=== PATIENT | female | born 1975 | race Two or more races ===

== ENCOUNTER 2016-12-04 11:42 | Inpatient (IN) | payer OTHER ==
[~2016-12-04] VITALS: Ht 162.6 cm; Wt 95.7 kg
[2016-12-04] VITALS (8 sets, daily range): BP systolic 127–169; BP diastolic 64–88
[~2016-12-04 11:42] MED LIST: ceFAZolin sod 2 GM in D5W 110 ML IVP ONE
[2016-12-04] MEDS ORDERED: METOPROLOL SUCC50 MG ORAL (12:31)
[2016-12-04] MEDS ORDERED: HYDROCHLOROTHIA25 MG ORAL (12:32)
[2016-12-04] MEDS ORDERED: LISINOPRIL40 MG ORAL (12:32)
[2016-12-04] MEDS ORDERED: VIT D PO (12:33)
[2016-12-04] MEDS ORDERED: Gelfoam Absorbable 1gm powder pkt TOPIC ONE (12:59)
[2016-12-04] MEDS ORDERED: Bupivacaine w/Epi 0.5% 30ml Vial INJ ONE (12:59)
[2016-12-04] MEDS ORDERED: Bacitracin 50000 Units Vial ONE (12:59)
[2016-12-04] MEDS ORDERED: Thrombin 5000 units TOPIC ONE ×2 (12:59→14:11)
[2016-12-04] MEDS ORDERED: Thrombin 5000 units spray kit TOPIC ONE (12:59)
[2016-12-04] MEDS ORDERED: Zemuron 50mg/5ml Inj IV ONE (14:20)
[2016-12-04] MEDS ORDERED: NS Irrig 1000ml ONE (14:20)
[2016-12-04] MEDS ORDERED: Sterile Water Irrig 1000ml IRRIG ONE (14:20)
[2016-12-04] MEDS ORDERED: Propofol 10mg/ml 100ml btl IV ONE (14:20)
[2016-12-04] MEDS ORDERED: fentaNYL 100 mcg/2 mL IV ONE (14:20)
[2016-12-04] MEDS ORDERED: Midazolam 2mg/2ml Inj ONE (14:20)
[2016-12-04] MEDS ORDERED: Esmolol 100mg/10ml Inj ONE (14:20)
[2016-12-04] MEDS ORDERED: LR 1000ml ONE (14:20)
[2016-12-04] MEDS ORDERED: NS Irrig 1000ml IRRIG ONE (14:30)
--- NOTE | 2016-12-04 14:57 | Pre-Procedure Note/Attestation ---
Pre-Procedure Note/Attestation Complete Prior to Procedure Procedure Narrative: acdf c456 Indications for Procedure Pre-Operative Diagnosis: C456 HNP Attestation I attest that I discussed the nature of the procedure; its benefits; risks and complications; and alternatives (and the risks and benefits of such alternatives ), prior to the procedure, with the patient (or the patient's legal development representative). I attest that, if there was a reasonable possibility of needing a blood transfusion, the patient (or the patient's legal development representative) was given the [facility] standardized written summary, pursuant to the [place] [employer] Blood Safety Act ([place] Health and Safety Code # 1645, as amended). I attest that I re-evaluated the patient just prior to the surgery and that there has been no change in the patient's H&P, except as documented below: SHAKILA DALY Dec 04, 2016 14:57
--- NOTE | 2016-12-04 14:58 | Brief Operative Note ---
Immediate Post Operative Note Operative Note Pre-op Diagnosis: C456 HNP Procedure: ACDF c456, c5 partial corpectomy Post-op Diagnosis: same as pre-op Findings: consistent w/pre-op dx studies Surgeon: rebekah Cut Off Saw Operator Pipe Blanks: derek Segura Anesthesiologist: medhat Anesthesia: general Specimen: none Complications: none Condition: stable Estimated Blood Loss: minimal Drains: hemovac Implant(s) used?: Yes - alphateck cage and plate 8 mm and 5 mm small footplate , 32 mm plate SHAKILA DALY Dec 04, 2016 14:58
[2016-12-04] MEDS ORDERED: LR 1000ml 1,000 ML IVLG SCH (15:50)
[2016-12-04] MEDS ORDERED: LORazepam Inj 2mg/ml 1ml IV PRN (16:00)
[2016-12-04] MEDS ORDERED: Meperidine 25mg/ml Inj IV PRN (16:00)
[2016-12-04] MEDS ORDERED: Labetalol 5mg/ml 20ml vial IV PRN (16:00)
[2016-12-04] MEDS ORDERED: DiphenhydrAMINE 50mg/ml Inj IVP PRN (16:00)
[2016-12-04] MEDS ORDERED: Hydromorphone 0.5mg/0.5ml inj IVP PRN (16:00)
--- NOTE | 2016-12-04 16:02 | Anethesia Preoperative Eval ---
Anesthesia Pre-op PMH/ROS General Date of Evaluation: Dec 04, 2016 Time of Evaluation: 14:16 Anesthesiologist: Liliya ASA Score: ASA 3 Mallampati Score Class I : Soft palate, uvula, fauces, pillars visible Class II: Soft palate, uvula, fauces visible Class III: Soft palate, base of uvula visible Class IV: Only hard plate visible Mallampati Classification: Class III Surgeon: Billy Diagnosis: Herniated cervical disc Surgical Procedure: ACDF C4-5, 5-6 Family History: no anesthesia problems Allergies: Coded Allergies: PROCHLORPERAZINE (Verified Allergy, Intermediate, 12/03/16) JITTERY Medications: see eMAR Past Medical History Cardiovascular: Reports: HTN, Denies: CAD, [place], arrhythmia, other, valve dz Pulmonary: Denies: COPD, [place], asthma, other Gastrointestinal/Genitourinary: Denies: CRI, ESRD, GERD, other Neurologic/Psychiatric: Denies: CVA, TIA, dementia, depression/anxiety, other Endocrine: Denies: DM, hypothyroidism, other, steroids HEENT: Denies: CHITIMACHA (L), CHITIMACHA (R), cataract (L), cataract (R), glaucoma, other Hematology/Immune: Denies: DVT, anemia, bleeding disorder, other Musculoskeletal/Integumentary: Denies: DDD, DJD, OA, RA, edema, other Other: obesity PMH Narrative: HTN, obesity PSxH Narrative: AP, cholecystectomy, partial colectomy, abdominoplasty Anesthesia Pre-op Phys. Exam Physician Exam Last Vital Signs Date Time Temp Pulse Resp B/P Pulse Ox O2 Delivery O2 Flow Rate FiO2 12/04/16 12:17 98.0 71 18 127/64 96 Room Air Constitutional: NAD Neurologic: CN 2-12 intact Cardiovascular: RRR, no M/R/G Respiratory: CTA Gastrointestinal: S/NT/ND Airway Exam Mallampati Score: Class III MO: full ROM: full Teeth: intact Anesthesia Pre-op A/P Labs WNL Urine Test Test 12/04/16 11:55 Urine HCG, Qualitative Negative Studies Pre-op Studies: EKG - NSR Risk Assessment & Plan Assessment: Hypertensive female for ACDF Plan: GETA Status Change Before Surgery: No Pre-Antibiotics Drug: Ancef Given Within 1 Hr of Incision: Yes Time Given: 14:30 JEN KILGORE M.D. Dec 04, 2016 16:02
--- NOTE | 2016-12-04 16:03 | Immediate Post-Op Evaluation ---
Immediate Post-Op Evalulation Immediate Post-Op Evalulation Procedure: ACDF C4-5, 5-6 Date of Evaluation: Dec 04, 2016 Time of Evaluation: 18:47 IV Fluids: 1600 Estimated Blood Loss: 200 Urinary Output: 400 Blood Pressure Systolic: 147 Blood Pressure Diastolic: 70 Pulse Rate: 103 Respiratory Rate: 22 O2 Sat by Pulse Oximetry: 97 Temperature (Fahrenheit): 98.0 Pain Score (1-10): 0 Nausea: No Vomiting: No Complications No complication Patient Status: reacts, patent, extubated, none Hydration Status: adequate Drug: Ancef Given Within 1 Hr of Incision: Yes Time Given: 14:30 JEN KILGORE M.D. Dec 04, 2016 16:03
[2016-12-04] MEDS ORDERED: Naloxone 0.4mg/ml Inj IVP PRN ×2 (17:15→18:30)
[2016-12-04] MEDS ORDERED: Propofol 10mg/ml 20ml IV ONE (17:43)
[2016-12-04] MEDS ORDERED: HYDROmorphone 1mg/ml Carpuject SUBQ PRN (18:30)
[2016-12-04] MEDS ORDERED: HYDROmorphone 1mg/ml Carpuject IVP PRN (18:30)
[2016-12-04] MEDS ORDERED: Milk of Magnesia 30ml Ud ORAL PRN ×2 (18:30→20:01)
[2016-12-04] MEDS ORDERED: Norco 5mg/325mg tab ORAL PRN ×2 (18:30→20:01)
[2016-12-04] MEDS ORDERED: Norco 7.5mg/325mg tab ORAL PRN ×2 (18:30)
[2016-12-04] MEDS ORDERED: LR 1000ml 1,000 ML IV SCH (20:00)
[2016-12-04] MEDS ORDERED: Tylenol #3 tab (300mg/30mg) ORAL PRN (20:01)
[2016-12-04] MEDS ORDERED: Morphine Sulfate 4mg/ml Inj IM PRN (20:01)
[2016-12-04] MEDS ORDERED: Transderm Scop 1.5mg TDERMAL PRN (20:01)
[2016-12-04] MEDS ORDERED: Norco 10mg/325mg tab ORAL PRN (20:01)
[2016-12-04] MEDS ORDERED: LORazepam 0.5mg tab ORAL PRN (20:01)
[2016-12-04] MEDS ORDERED: Zolpidem 5mg tab ORAL PRN (21:00)
[2016-12-04] MEDS: ceFAZolin sod 1 GM in D5W 55 ML IV SCH (22:00)
[2016-12-05] VITALS: BP 115/77
[2016-12-05] MEDS: Morphine Sulfate 4mg/ml Inj IM PRN ×5 (00:20→16:45)
[2016-12-05] MEDS: Cyclobenzaprine 10mg Tab ORAL PRN ×2 (02:21→11:14)
--- NOTE | 2016-12-05 02:39 | Operative Note - Dictated ---
DATE OF OPERATION: 12/04/2016 SURGEON: Richard Cervantes M.D. IV THERAPY NURSE: ALE Kaye. ANESTHESIOLOGIST: Timi Lovell M.D. ANESTHESIA TYPE: General endotracheal anesthesia. PREOPERATIVE DIAGNOSES: 1. Disk extrusions C4-C5 and herniation with discopathy C5-C6. 2. Radiculopathy right side primarily. POSTOPERATIVE DIAGNOSES: 1. Disk extrusions C4-C5 and herniation with discopathy C5-C6. 2. Radiculopathy right side primarily. PROCEDURE: 1. Wide and radical discectomy, C4-C5 and C5-C6. 2. Partial corpectomy superior portion of C5. 3. Interbody fusion, C4-C5 and C5-C6 using structural PEEK cage with allograft (Bacterin bone as well as local autograft bone). 4. Anterior instrumentation using Alphatec plate (32 mm with fixed angle screws. 5. Use of fluoroscopy. 6. Use of operative microscope. 7. Neurodiagnostic monitoring. ESTIMATED BLOOD LOSS: 200 mL. COMPLICATIONS: None. FINDINGS: Large calcified disk extrusion posteriorly at C4-C5, requiring a partial corpectomy of the superior portion of C5. INDICATIONS: The patient is a very pleasant, 41-year-old, who sustained an injury resulting in significant neck pain and disc extrusion. Surgical intervention was recommended after conservative care had failed. She had fairly significant radiculopathic findings in the right upper extremity and therefore surgical intervention was recommended. RISK NOTE: The patient was explained in detail the risks and benefits of surgery to include, but not be limited to, those of bleeding, infection, damage to nerves, vessels, tendons, anesthetic risk, allergic reaction, aspiration, and possibly , possible risk of pseudoarthrosis, and need for additional surgery was discussed. The patient understood and wished to proceed. OPERATIVE PROCEDURE IN DETAIL: The patient was taken to the operative suite. After general endotracheal anesthesia was induced, Moore catheter was placed. Neck was prepped and draped in the usual sterile fashion after the neck bolster was applied as well as a chin strap. The C5 level was localized with a needle superimposed on the skin and fluoroscopically confirmed. The neck was prepped and draped in the usual sterile fashion. A transverse incision was made through the skin. The incision was carried down through to the area of the platysma. Platysma was split perpendicular to the fibers. The interval medial to sternocleidomastoid was bluntly dissected. The carotid pulse was palpated and dissection was obtained medial to this. The interval medial to the sternocleidomastoid along the prevertebral fascia was delineated. A self-retaining retractors were put in place. Needle was placed at C5-C6 and radiographically confirmed. The needle was removed. The operating microscope was brought into place. [place] posts were placed then at C5 and C6. The disk was incised under microscopic visualization, wide and radical diskectomy was performed at C5-C6 all the way down to the posterior longitudinal ligament. There was partial calcification along the left lateral recess. A right-sided partial uncovertebrectomy and decompression of the right neural foramen at C5-C6 was performed using standard technique by drilling out the posterior osteophyte as well as use of a curved curette as well as a [place] punch. Once satisfied with the decompression, copious irrigation was performed. Meticulous hemostasis was performed. The appropriate sized PEEK cage (small footplate by 5 mm was chosen after a trial was inserted and noted to be in good position under fluoroscopic guidance. At this juncture, the PEEK cage was centrally packed with a block of Bacterin bone, which had been soaking in the patient's blood to reconstitute and soften the bone. The bone was inserted into a central fenestration and the excess was cut off. The PEEK cage was then inserted into the disk space and under fluoroscopic guidance, it was noted to be in excellent position. Additional bone graft material was placed at the periphery, both on the right and on the left. [place] post was removed from C6. The retractors were repositioned and the post was then placed into C4. Bladder radical diskectomy was performed in a similar fashion all the way down to the posterior annulus. A small central disc fragment was identified and this was removed. At this point, dissection was further carried down and it was noted that the posterior edge of the disk had calcified centrally and towards the right side and then using a meticulous micro technique, the interval between the calcified disk and the dura was developed. The calcified disk was removed in a piecemeal fashion. Please note that the disk extrusion, which was calcified did extend below the vertebral body of C5 and therefore a partial corpectomy on the central right side was required in order to deliver the calcified disk. Once this was achieved, a partial corpectomy of the left side was also achieved so as to have a parallel endplates. At this point, the appropriate sized cage (8 mm in height) small footprint was centrally packed with bone graft. The cage was placed under fluoroscopic guidance and noted to be in good position. The defect on the left and on the right was then packed with additional local autograft and the additional Bacterin bone. The [place] posts were both removed. Hemostasis was achieved. Bone wax was applied. At this juncture a 32 mm plate was chosen. It was contoured into lordosis and applied. The central 2 screws were first applied under fluoroscopic guidance. Then the screws in the C4 and C6 were subsequently also applied under fluoroscopic guidance due to the extensive nature of corpectomy and in order to hopefully avoid significant subsidence, a fixed angled screws were applied 14 mm bilaterally into C4, 14 mm bilaterally into C5, and 14 mm on the right, and 12 mm screw on the left. The patient overall tolerated the procedure well. Meticulous hemostasis was achieved. Due to the extensive nature of the bony work, medium-size Hemovac drain was placed. The platysma was repaired using 3-0 Vicryl. Subcutaneous closure using 4-0 Vicryl. Dermabond was applied and a sterile dressing was applied. The patient overall tolerated the procedure well. All sponge, needle counts were correct. The patient was awakened, extubated, and transferred to recovery room in stable condition. Richard Cervantes M.D. DR: WAQAR JOB#: [id number] CC:
[2016-12-05 04:00] VITALS: BP 131/71
[2016-12-05] MEDS: ceFAZolin sod 1 GM in D5W 55 ML IV SCH ×2 (05:53→13:17)
--- NOTE | 2016-12-05 06:39 | Consultation ---
DATE OF CONSULTATION: 12/04/2016 CONSULTING PHYSICIAN: Clifton Ochoa M.D. REFERRING PHYSICIAN: Richard Cervantes M.D. REASON FOR CONSULTATION: Acute pain consult. HISTORY OF PRESENT ILLNESS: Dear Dr. Richard Cervantes, Thank you kindly for consulting me to evaluate and render an opinion as to how to proceed in the management of the patient's acute postoperative cervical spine pain after cervical spine fusion surgery with instrumentation. I did see that the patient is a pleasant 41-year-old, obese woman who injured her neck in an accident. She required cervical spine fusion surgery with instrumentation today. She complains significant postoperative discomfort and consulted me for acute pain consultation. I saw the patient at bedside and performed a detailed History and Physical examination. I reviewed the medical record with the nursing team and pharmacy staff including pharmacist Junior . I discussed the case with yourself, Dr. Cervantes and devised the following analgesic plan. PAST MEDICAL HISTORY: 1. Acute postoperative cervical spine pain, status post cervical spine fusion surgery with instrumentation by Dr. Richard Cervantes in November 2016. 2. Personal injury. 3. Obesity. 4. Hypertension. ALLERGIES: Compazine. MEDICATIONS: Medications at home, hydrochlorothiazide, lisinopril, metoprolol, and antibiotics. SOCIAL HISTORY: The patient lives at home with her adult children and . The patient denies tobacco, alcohol, or illicit drug use. REVIEW OF SYSTEMS: Per attending physician. FAMILY HISTORY: Negative. PAST SURGICAL HISTORY: Appendectomy, section, gallbladder surgery, colectomy in 2016, tummy tuck, and hemorrhoidectomy. PHYSICAL EXAMINATION: VITAL SIGNS: Age 41. Height 5 feet 4 inches and weight 97 kg. Body mass index 36. Pain level is 7/10 on the visual analog pain scale. Oxygen saturation is 97% on supplemental oxygen. Blood pressure 158/87, respirations 26, pulse 90, and afebrile. HEENT: Shows cervical spine drain catheter holding suction. Moving all extremities x4. Significant discomfort with any range of motion. The patient's swallowing, breathing, and phonating is within normal limits. Postoperative swelling appears normal. Head of bed is elevated about 15 degrees. The patient appears non-toxic. NEUROLOGIC: The patient is moving all extremities x4 with good motor strength throughout. Detailed neurologic exam per Dr. Cervantes. CHEST: Barrel-chested. No wheezes rales, rhonchi, or accessory muscle use noted. Clear to auscultation. HEART: Regular rate and rhythm. Positive S4. Normal S1 and S2. No S3 noted. ABDOMEN: Positive bowel sounds. Obese. Moore catheter in place. GENITOURINARY: Deferred. BREASTS: Deferred. LABORATORY AND DIAGNOSTIC DATA: Diagnostic testing November 30, 2016 shows BUN 11, creatinine 0.6, sodium 139, potassium 4.1, chloride 106, bicarbonate 24, and calcium 9.7. Total protein 7.3. Albumin 4.4. Total bilirubin 0.2. Alkaline phosphatase 68, AST 15, and ALT 21. PTT 26. INR 1.0. White count 8, hematocrit 40, and platelets 260,000. A 12-lead EKG, normal sinus rhythm, ventricular rate 71. IMPRESSION: 1. Acute postoperative cervical spine pain, status post cervical spine fusion surgery with instrumentation by Dr. Richard Cervantes in November 2016. 2. Personal injury. 3. Obesity. 4. Hypertension. TREATMENT AND RECOMMENDATIONS: To help with this patient's pain control postoperatively, I have devised the following analgesic plan. The patient states that she has had multiple surgeries in the past. She does tolerate morphine well. I will make available of intramuscular morphine 4 mg every three hours p.r.n. for her as a first-line agent. She does have mild nausea. She is allergic to Compazine. I have made available Zofran, Phenergan, and scopolamine as rescue analgesics in that order. I have ordered a trial of oxycodone with her breakfast. The patient believes that she has tolerated [place] in the past after previous surgeries. However, she will believes that the [place] is relatively weak opioid. We will trial her on 5 mg oxycodone with breakfast to check for tolerability and efficacy. If the oxycodone is well tolerated, she will need a prescription for either [place] or oxycodone at the time of discharge. If the oxycodone is effective, we will continue that postoperatively to help wean off the parenteral narcotics. If the oxycodone is not . Clifton Ochoa M.D. DR: JOLANTA JOB#: [id number] CC:
[2016-12-05 07:32] LABS: BASOPHILS % (AUTO) 0.1 % (0.0-2.0); MEAN CORPUSCULAR HEMOGLOBIN 28.5 PG (27.0-31.0); MEAN CORPUSCULAR HGB CONC 33.6 G/DL (32.0-36.0); MEAN CORPUSCULAR VOLUME 85 FL (80-99); MEAN PLATELET VOLUME 10.1 FL (6.5-10.1); MONOCYTES % (AUTO) 4.6 % (1.0-10.0); NEUTROPHILS % (AUTO) 84.3 % (45.0-75.0); PLATELET COUNT 262 K/UL (150-450); RED BLOOD COUNT 4.32 M/UL (4.20-5.40); RED CELL DISTRIBUTION WIDTH 13.1 % (11.6-14.8); WHITE BLOOD COUNT 14.9 K/UL (4.8-10.8)
[2016-12-05] MEDS ORDERED: oxyCODONE 5mg IR tab ORAL ONE (08:00)
[2016-12-05] MEDS ORDERED: Tamsulosin 0.4mg cap ORAL SCH (09:00)
[2016-12-05] MEDS: Docusate 100mg tablet ORAL SCH ×2 (09:00→16:58)
[2016-12-05] MEDS ORDERED: Lisinopril 20mg tab ORAL SCH (09:00)
--- NOTE | 2016-12-05 09:18 | 48 Hour Post Anesthesia Eval ---
Post Anesthesia Evaluation Procedure: ACDF C4-5, 5-6 Date of Evaluation: Dec 05, 2016 Time of Evaluation: 07:03 Blood Pressure Systolic: 131 0: 71 Pulse Rate: 83 Respiratory Rate: 19 Temperature (Fahrenheit): 97.7 O2 Sat by Pulse Oximetry: 95 Airway: patent Nausea: No Vomiting: No Pain Intensity: 2 Hydration Status: adequate Cardiopulmonary Status: stable Mental Status/LOC: patient returned to baseline Follow-up Care/Observations: 0 Post-Anesthesia Complications: 0 Follow-up care needed: N/A Hawk Romero MD Dec 05, 2016 09:18
[2016-12-05 09:19] VITALS: BP 146/84
--- NOTE | 2016-12-05 09:22 | Diagnostic Imaging Report ---
Indication: PAIN Technique: Digital intraoperative images Comparison: Findings: Intraoperative images demonstrate localizing tool projected over C5. Subsequent images document placement of disc spacers and anterior fusion hardware at what appears to be C4-6 Impression: Intraoperative imaging, as described
--- NOTE | 2016-12-05 18:28 | Orthopedic Spine Progress Note ---
Ortho Spine - Progress Note Subjective Symptoms: c/o post-op neck pain, improved - as compared to pre-op Objective Vital Signs: Last 24 Hour Vital Signs Date Time Temp Pulse Resp B/P Pulse Ox O2 Delivery O2 Flow Rate FiO2 12/05/16 13:14 98.2 12/05/16 12:13 98.2 12/05/16 09:27 146/84 12/05/16 09:23 78 146/84 12/05/16 09:19 98.2 78 18 146/84 93 Room Air 12/05/16 09:18 83 19 95 12/05/16 04:00 97.7 83 19 131/71 95 Nasal Cannula 12/05/16 00:00 98.1 97 19 115/77 93 Nasal Cannula 12/04/16 19:30 98.0 12/04/16 19:25 98.0 90 26 168/87 97 Nasal Cannula 3.0 12/04/16 19:15 89 22 164/88 97 Nasal Cannula 3.0 12/04/16 19:05 92 16 169/87 96 Nasal Cannula 3.0 12/04/16 18:55 92 16 159/85 96 Nasal Cannula 3.0 12/04/16 18:45 98 19 140/78 95 Nasal Cannula 3.0 12/04/16 18:45 103 22 97 12/04/16 18:40 97 17 149/77 95 Simple Mask 6.0 12/04/16 18:33 98.0 103 14 147/70 96 Simple Mask 6.0 I&O: Intake and Output 12/04/16 12/05/16 19:00 07:00 Intake Total 1500 ml 1105 ml Output Total 700 ml 0 ml Balance 800 ml 1105 ml IV Total 1500 ml 1105 ml Output Urine Total 500 ml Drainage Total 0 ml Estimated Blood Loss 200 ml # Voids 1 Drains: none Neuro Status: normal Assessment Procedure Performed: ACDF c456, c5 partial corpectomy Plan Plan: PT, pain management, d/c drain, discharge to home SHAKILA DALY Dec 05, 2016 18:28
--- NOTE | 2016-12-05 19:49 | Progress Note ---
DATE: 12/05/2016 ACUTE PAIN MANAGEMENT PHYSICIAN PROGRESS NOTE MEDICATIONS: Medication administration record reviewed. Medications include Ambien, Flomax, scopolamine patch, Phenergan, Protonix, Narcan, morphine, metoprolol, milk of magnesia, Ativan, lisinopril, hydrochlorothiazide, Colace, Benadryl, Flexeril, Catapres, Cepacol, Dulcolax, Mylanta, [place], and Tylenol. LABORATORY DATA: Laboratory studies from this morning, 12/05/2016, shows white count of 15, post-operative reactive hematocrit 37, and platelets 262,000. OBJECTIVE: VITAL SIGNS: Afebrile, pulse 78, respirations 18, blood pressure 146/84, and oxygen saturation 93% on room air. I spent over 60 minutes in consultation today. I saw the patient at bedside with the nurse RNNakita. I discussed the case with the surgeon, Dr. Richard Cervantes. The patient has been ambulating out of bed with Physical Therapy. The patient's just arrived to the bedside to assist with activities of daily living and provide good social support. The patient is tolerating breakfast and has no nausea symptoms. The patient has been tolerating the oxycodone and has tolerated [place] in the past as well. I will leave prescriptions for both [place] and oxycodone for the patient to fill depending on which medication her insurance pharmacy plan will fill. I did ask the patient to shred whichever prescription she does not require. The patient has swallowing, breathing, and phonating within normal limits. The patient is voiding urine after the Moore catheter was removed. I did encourage aggressive hydration to avoid orthostatic hypotension. The patient is in good spirits and does not appear to be overly anxious. Her blood pressure is better controlled back on her regular preoperative medications. Output from the indwelling cervical spine drain catheter overnight was trace. With the nurse RNNakita at the bedside, the patient was examined in the sitting position. I removed the cervical spine dressing showing the incision line clean and dry with Durabond sealant intact. With the Hemovac drain taken off of suction and at end-expiration, I personally removed the indwelling cervical spine drain catheter. The tip was intact. Alcohol swab was applied to the drain hole site. Sterile 4 x 4 gauze was then applied and covered by sterile Tegaderm. There were no complications. I will defer discharge planning to the surgeon, Dr. Cervantes. Clifton Ochoa M.D. DR: SOSA JOB#: [id number] CC:
[2016-12-05 20:00] VITALS: BP 137/84
[2016-12-05] MEDS ORDERED: Tubing IV Secondary IV ONE (22:55)
--- NOTE | 2016-12-05 23:18 | Consultation ---
DATE OF CONSULTATION: CONSULTING PHYSICIAN: Clifton Ochoa M.D. REFERRING PHYSICIAN: Richard Cervantes M.D. REASON FOR CONSULTATION: Acute pain consult. HISTORY OF PRESENT ILLNESS: Dear Dr. Richard Cervantes, Thank you kindly for consulting me to evaluate and render an opinion as to how to proceed in the management of the patient's acute postoperative cervical spine pain after cervical spine fusion surgery with instrumentation. I did see that the patient is a pleasant 41-year-old, obese woman who injured her neck in an accident. She required cervical spine fusion surgery with instrumentation today. She complains significant postoperative discomfort and consulted me for acute pain consultation. I saw the patient at bedside and performed a detailed History and Physical examination. I reviewed the medical record with the nursing team and pharmacy staff including pharmacist Junior . I discussed the case with yourself, Dr. Cervantes and devised the following analgesic plan. PAST MEDICAL HISTORY: 1. Acute postoperative cervical spine pain, status post cervical spine fusion surgery with instrumentation by Dr. Richard Cervantes in November 2016. 2. Personal injury. 3. Obesity. 4. Hypertension. MEDICATIONS: Medications at home, hydrochlorothiazide, lisinopril, metoprolol, and antibiotics. ALLERGIES: Compazine. SOCIAL HISTORY: The patient lives at home with her adult children and . The patient denies tobacco, alcohol, or illicit drug use. REVIEW OF SYSTEMS: Per attending physician. FAMILY HISTORY: Negative. PAST SURGICAL HISTORY: Appendectomy, section, gallbladder surgery, colectomy in 2016, tummy tuck, and hemorrhoidectomy. PHYSICAL EXAMINATION: VITAL SIGNS: Age 41. Height 5 feet 4 inches and weight 97 kg. Body mass index 36. Pain level is 7/10 on the visual analog pain scale. Oxygen saturation is 97% on supplemental oxygen. Blood pressure 158/87, respirations 26, pulse 90, and afebrile. HEENT: Shows cervical spine drain catheter holding suction. Moving all extremities x4. Significant discomfort with any range of motion. The patient's swallowing, breathing, and phonating is within normal limits. Postoperative swelling appears normal. Head of bed is elevated about 15 degrees. The patient appears non-toxic. NEUROLOGIC: The patient is moving all extremities x4 with good motor strength throughout. Detailed neurologic exam per Dr. Cervantes. CHEST: Barrel-chested. No wheezes rales, rhonchi, or accessory muscle use noted. Clear to auscultation. HEART: Regular rate and rhythm. Positive S4. Normal S1 and S2. No S3 noted. ABDOMEN: Positive bowel sounds. Obese. Moore catheter in place. GENITOURINARY: Deferred. BREASTS: Deferred. LABORATORY AND DIAGNOSTIC DATA: Diagnostic testing November 30, 2016 shows BUN 11, creatinine 0.6, sodium 139, potassium 4.1, chloride 106, bicarbonate 24, and calcium 9.7. Total protein 7.3. Albumin 4.4. Total bilirubin 0.2. Alkaline phosphatase 68, AST 15, and ALT 21. PTT 26. INR 1.0. White count 8, hematocrit 40, and platelets 260,000. A 12-lead EKG, normal sinus rhythm, ventricular rate 71. IMPRESSION: 1. Acute postoperative cervical spine pain, status post cervical spine fusion surgery with instrumentation by Dr. Richard Cervantes in November 2016. 2. Personal injury. 3. Obesity. 4. Hypertension. TREATMENT AND RECOMMENDATIONS: To help with this patient's pain control postoperatively, I have devised the following analgesic plan. The patient states that she has had multiple surgeries in the past. She does tolerate morphine well. I will make available of intramuscular morphine 4 mg every three hours p.r.n. for her as a first-line agent. She does have mild nausea. She is allergic to Compazine. I have made available Zofran, Phenergan, and scopolamine as rescue analgesics in that order. I have ordered a trial of oxycodone with her breakfast. The patient believes that she has tolerated [place] in the past after previous surgeries. However, she will believes that the [place] is relatively weak opioid. We will trial her on 5 mg oxycodone with breakfast to check for tolerability and efficacy. If the oxycodone is well tolerated, she will need a prescription for either [place] or oxycodone at the time of discharge. If the oxycodone is not well tolerated, then we will use the hydrocodone. I have also added Flexeril 10 mg q.8 hours p.r.n. for any muscle spasm complaints. I have ordered a low-dose Ativan 0.5 mg q.8 hours p.r.n. for anxiety and insomnia. The patient has hypertension, she will restart her blood pressure medicines in the morning. I have added p.r.n. dose of clonidine 0.1 mg orally every 8 hours p.r.n. for systolic blood pressure greater than 160 mmHg. For the patient's comfort, I have ordered Benadryl 25 mg orally q.6 hours p.r.n. for itching. I have ordered Cepacol lozenges for topical sore throat complaints, and I have asked the nursing team to place at the bedside. I will empirically place the patient on 40 mg nightly of Protonix for GI ulcer prophylaxis along with p.r.n. dose of Mylanta 30 mL q.6 hours p.r.n. for any GERD symptom exacerbation. For the patient's obesity, I have encouraged aggressive use of incentive spirometer to encourage the . She does have sequential compression devices on bilateral lower extremity calves for DVT prophylaxis. I have added multiple p.r.n. laxatives including milk of magnesia and in case of opioid-induced constipation. We will follow the output on the indwelling cervical spine drain catheter. The patient will start ambulating tomorrow. A comprehensive review of the medical record was performed. Multiple records were reviewed from the surgery suite, pharmacy team, the nursing team, the recovery room, and reports from Dr. Cervantes. Clifton Ochoa M.D. DR: SALIMA JOB#: [id number] CC:
--- NOTE | 2016-12-06 16:38 | Discharge Summary ---
Discharge Summary Hospital Course Date of Admission Dec 04, 2016 at 11:42 Date of Discharge Dec 05, 2016 at 22:56 Admitting Diagnosis HPI Sanjuana Renteria is a 41 year old female who was admitted on Dec 04, 2016 at 11: 42 for Cervical Disc Herniation Hospital Course [id number] Discharge Discharge Disposition Patient was discharged to Home (01) Discharge Diagnoses: Ely Richardson NP Dec 06, 2016 16:38
--- NOTE | 2016-12-07 02:28 | Discharge Summary 2 SIG ---
DATE OF ADMISSION: 12/04/2016 DATE OF DISCHARGE: 12/05/2016 CONSULTANTS: Clifton Ochoa M.D. BRIEF HOSPITAL COURSE: The patient is a 41-year-old female, who sustained an injury resulting in significant neck pain and disc extrusion. Surgical intervention was recommended after conservative care has failed. She had fairly significant radiculopathic findings in the right upper extremity and surgical intervention was recommended. She was admitted on 12/04/2016 and underwent ACDF on C4, C5, and C6 with C5 partial corpectomy. Postoperatively, Dr. Ochoa was consulted for pain management. She was seen by physical therapy and has been ambulating out of the bed. She was tolerating p.o. intake with good pain control. She was given prescriptions for both [place] and oxycodone. Advised to fill prescription depending on which medication should her pharmacy plan will cover. Blood pressure was controlled. Moore catheter was removed and was voiding well. Indwelling cervical spine drain had trace output. Drain was removed. Incision was clean and dry with Durabond sealant intact. The patient was eventually discharged home in stable condition. Advised to follow up as outpatient. FINAL DIAGNOSIS: Disc extrusion on C4 and C5 with herniation and discopathy on see C5-C6 and radiculopathy status post anterior cervical discectomy and fusion C4-C5 and C5-C6 and partial corpectomy on superior portion of C5. Richard Cervantes M.D. I have been assigned to dictate discharge summary on this account and I was not involved in the patient's management. Ely Richardson N.P. DR: RAMIRO JOB#: [id number] CC:
== END 2016-12-05 22:56 | disposition home or self-care (01) | DRG 473 ==
LOC: SDSOVERFLO 11:42 → 3E 19:08
PROC: 0RG20A0 Fusion of 2 or more Cervical Vertebral Joints with Interbody Fusion Device, Anterior Approach, Anterior Column, Open Approach (ICD-10-PCS; principal; 2016-12-04 14:00)
PROC: 0RT30ZZ Resection of Cervical Vertebral Disc, Open Approach (ICD-10-PCS; principal; 2016-12-04 14:00)
DX: M50.121 Cervical disc disorder at C4-C5 level with radiculopathy (principal); I10 Essential (primary) hypertension; E66.9 Obesity, unspecified; Z88.8 Allergy status to other drugs, medicaments and biological substances
CPT/HCPCS: 36415; 72040; 76001; 81025; 85025; 86850; 86900; 86901; 87081; 94003; 94150; J2180; J2250; J2405